=== PATIENT | male | born 1985 | race Caucasian/White ===

== ENCOUNTER 2016-10-19 05:07 | Observation (INO) | payer OTHER ==
[~2016-10-19] VITALS: Ht 175.3 cm; Wt 90.7 kg
[2016-10-19] MEDS ORDERED: CLAR10CA3 PO (05:15)
[2016-10-19] MEDS ORDERED: SUDATAB15 PO (05:16)
[2016-10-19] MEDS ORDERED: NAPR500T2 PO (05:16)
[2016-10-19] MEDS ORDERED: CLINDAMYCIN 900 MG in APPROPRIATE DILUENT 1 EA IV ONE (06:30)
[2016-10-19] MEDS ORDERED: methylPREDNISolone INJ 125 MG/2 ML VIAL (J2930) IV ONE (06:30)
[2016-10-19] MEDS ORDERED: ONDANSETRON 4MG/2ML VIAL (J2405) IV ONE (06:30)
[2016-10-19] MEDS ORDERED: MORPHINE 4 MG/ML 1ML SYRINGE IV ONE (06:30)
[2016-10-19] MEDS ORDERED: LIDOCAINE W/EPINEPHRINE 1% 20ML VIAL As Ordered ONE (07:29)
[2016-10-19] MEDS ORDERED: MORPHINE 10 MG/ML 1ML VIAL IV ONE (08:15)
[2016-10-19] MEDS: LR 1,000 ML IV SCH ×2 (08:16→20:17)
[2016-10-19] MEDS ORDERED: LIDOCAINE W/EPINEPHRINE 1% 20ML VIAL XX ONE (09:00)
[2016-10-19] MEDS ORDERED: PROMETHAZINE INJ 25 MG/ML VIAL (J2550) IV PRN (10:30)
[2016-10-19] MEDS ORDERED: ONDANSETRON 4MG/2ML VIAL (J2405) IV PRN (10:30)
[2016-10-19 12:00] VITALS: BP 131/71
[2016-10-19] MEDS: MORPHINE 10 MG/ML 1ML VIAL IV PRN ×3 (12:37→21:29)
[2016-10-19] MEDS: CLINDAMYCIN 900 MG in APPROPRIATE DILUENT 1 EA IV SCH ×2 (12:40→17:20)
[2016-10-19] MEDS: IBUPROFEN 600 MG TAB PO PRN (15:34)
[2016-10-19] MEDS: HYDROCORTISONE INJection 1,000 MG in NS 50 ML IV SCH ×2 (15:42→21:29)
[2016-10-19 16:00] VITALS: BP 139/68
[2016-10-19 20:00] VITALS: BP 125/64
[2016-10-20] MEDS: CLINDAMYCIN 900 MG in APPROPRIATE DILUENT 1 EA IV SCH ×4 (00:21→17:30)
[2016-10-20] MEDS: IBUPROFEN 600 MG TAB PO PRN ×3 (00:25→20:52)
[2016-10-20] MEDS: MORPHINE 10 MG/ML 1ML VIAL IV PRN ×2 (01:22→06:09)
[2016-10-20 04:00] VITALS: BP 127/61
[2016-10-20] MEDS: LR 1,000 ML IV SCH ×2 (06:09→14:38)
[2016-10-20] MEDS: HYDROCORTISONE INJection 1,000 MG in NS 50 ML IV SCH ×3 (06:10→22:39)
[2016-10-20 08:00] VITALS: BP 139/76
[2016-10-20] MEDS: ACETAMINOPH W/CODEINE #3 TAB UD PO PRN ×3 (10:52→20:52)
[2016-10-20 12:00] VITALS: BP 129/72
--- NOTE | 2016-10-20 15:27 | HPE ---
DATE OF ADMISSION: 10/19/2016 The patient is a 31-year-old gentleman who presents with a history of sore throat. The patient had been seen three weeks beforehand and had some swelling in the right side of his neck and had a needle aspiration, incision and drainage by Dr. Parsons. The patient was sent home on oral antibiotics. The patient improved a bit but never got completely normal. A week prior to my seeing him, he developed more swelling on that side, pain radiating to his ear, and some trouble breathing. Otherwise, he has been normal. He does get sore throats every second month. He is a nonsmoker. Examination shows he is in distress. He is sitting up. No difficulty breathing. He has swelling of the right peritonsillar area with marked edema of the uvula. I infiltrated the area with lidocaine with epinephrine and made an incision. Before that, I aspirated 4 mL of pus. I drained the area. The patient was then admitted and placed on IV antibiotics and steroids. The patient will remain in the hospital until he has improved enough to go home.
[2016-10-20 16:00] VITALS: BP 130/65
[2016-10-21] VITALS: BP 115/68
[2016-10-21] MEDS: CLINDAMYCIN 900 MG in APPROPRIATE DILUENT 1 EA IV SCH ×3 (00:51→13:15)
[2016-10-21] MEDS: LR 1,000 ML IV SCH ×2 (00:51→11:55)
[2016-10-21] MEDS: ACETAMINOPH W/CODEINE #3 TAB UD PO PRN ×4 (00:55→13:16)
[2016-10-21] MEDS: IBUPROFEN 600 MG TAB PO PRN (04:37)
[2016-10-21] MEDS: HYDROCORTISONE INJection 1,000 MG in NS 50 ML IV SCH ×2 (06:49→14:27)
[2016-10-21 08:00] VITALS: BP 132/79
[2016-10-21 16:00] VITALS: BP 138/84
== END 2016-10-21 17:00 | disposition home or self-care (01) ==
LOC: M ED 05:49 → M ED INP 07:50 → M PED 11:49
PROVIDERS: ADMIT Otolaryngology; ATTEND Otolaryngology
DX: J36 Peritonsillar abscess (principal); B95.0 Streptococcus, group A, as the cause of diseases classified elsewhere
CPT/HCPCS: 87070; 87075; 87077; 96374; 96375; 96376; 99284; J1720; J2405; J2930